=== PATIENT | male | born 1975 | race Caucasian/White ===

== ENCOUNTER 2020-01-14 22:27 | Emergency (ER) | payer MEDICAID ==
[~2020-01-14] VITALS: Ht 182.9 cm; Wt 124.7 kg
[2020-01-14 22:30] VITALS: BP 180/112
--- NOTE | 2020-01-14 22:48 | NUR ---
TO LISA Jacob
--- NOTE | 2020-01-14 22:48 | NUR ---
44 year old male coming in for c/o dizziness, headache since 1200 today. denies taking medications. cbl sounds. Respirations even and unlabored. denies any n/v/d. + blurry vision. denies any injury or trauma. pmhx: HTN, DM nkda
[2020-01-14] MEDS ORDERED: KETOROLAC 30 MG/ML VIAL IM ONE (23:30)
[2020-01-14] MEDS ORDERED: CLONIDINE HYDROCHLORIDE 0.1 MG TAB PO ONE (23:30)
[2020-01-14 23:51] VITALS: BP 147/100
--- NOTE | 2020-01-14 23:51 | NUR ---
Patient discharged with v/s stable. Written and verbal after care instructions given and explained. Patient alert, oriented and verbalized understanding of instructions. Ambulatory with steady gait. All questions addressed prior to discharge. ID band removed. Patient advised to follow up with PMD. Rx of metformin and amlodipine given. Patient educated on indication of medication including possible reaction and side effects. Opportunity to ask questions provided and answered.
== END 2020-01-14 23:51 | disposition home or self-care (01) ==
LOC: MED 22:27
DX: R51.9 Headache, unspecified (principal); I10 Essential (primary) hypertension; E11.9 Type 2 diabetes mellitus without complications
CPT/HCPCS: 82948; 96372; 99283; J1885

== ENCOUNTER 2020-03-12 17:20 | Emergency (ER) | payer MEDICAID ==
[~2020-03-12] VITALS: Ht 180.3 cm; Wt 122.5 kg
--- NOTE | 2020-03-12 17:40 | NUR ---
Patient to bed 11. RN evaluating patient at bedside.
--- NOTE | 2020-03-12 17:42 | NUR ---
Dr. Gipson is evaluating the patient at bedside.
--- NOTE | 2020-03-12 17:49 | NUR ---
44 y/o male presents with mid/center back pain x4 days. denies any trauma or accident. skin is in tact, no obvious deformity noted. lung sounds clear bilaterally. denies any cough/fever/ nausea/vomiting. patient stated that tested positive for covid about 2 weeks ago and patient tested positive last week. no pmh nkda
== END 2020-03-12 17:55 | disposition home or self-care (01) ==
LOC: MED 17:20
DX: M62.830 Muscle spasm of back (principal); E11.9 Type 2 diabetes mellitus without complications; I10 Essential (primary) hypertension; Z79.899 Other long term (current) drug therapy
CPT/HCPCS: 99282